=== PATIENT | female | born 1990 | race Caucasian/White ===

== ENCOUNTER 2020-06-04 11:52 | Emergency (ER) | payer OTHER, SELFPAY ==
[2020-06-04 12:20] VITALS: BP 119/69; PULSE 81; RESP 14; TEMP 36.3; O2SAT 100; BMI 25.0
--- NOTE | 2020-06-04 12:29 | HMH.EDUTC ---
[facility] [place] Impression: Exposure to COVID-19 virus Disposition: Home, Self-Care Condition on Discharge: Good Instructions: Preventing the Spread of Coronavirus Discharge Instructions Additional Instructions: Drink plenty of fluids. Take tylenol for pain or fever. Return if you begin to have difficulty breathing. Follow up with your regular doctor. GO TO THE ER FOR ANY WORSENING SYMPTOMS Referrals: PCP,No [Primary Care Provider] - Time of Disposition: 12:33 Medical Decision Making - Medical Records Medical records reviewed: No: I reviewed the patient's medical records. - Alexei Inquiry Pt receiving controlled substance: No Vital Signs: 06/04/20 12:20 06/04/20 12:39 Temperature 97.4 F L 97.4 F L Temperature Source Oral Pulse Rate 81 Pulse Rate [Right Brachial] 81 Respiratory Rate 14 14 Blood Pressure 119/69 Blood Pressure [Right Arm] 119/69 Blood Pressure Mean [Right Arm] 85 Blood Pressure Source [Right Arm] Automatic Cuff Blood Pressure Position [Right Arm] Sitting 02 Sat by Pulse Oximetry 100 Oxygen Delivery Method Room Air Orders (Tests/Meds): ORDERS Category Date Time Status Covid-19 Nasal PCR Sendout P&C Routine Lab 06/04/20 12:[address] [facility] [place] - General Stated complaint: covid test Time Seen by Provider: 06/04/20 12:29 - History of Present Illness Provider Complaint: She states that she was exposed to covid-19. She denies any symptoms but she needs a covid test for her job. - Related Data Home Medications Medication Instructions Recorded Confirmed No Known Home Medications 12/15/18 12/15/18 Allergies Allergy/AdvReac Type Severity Reaction Status Date / Time No Known Allergies Allergy Verified 06/04/20 12:38 [facility] History - Hepatitis A Screen Attestation statement:: This patient has been screened for Hepatitis A risk factors. I have reviewed the patient's past medical history: Yes Medical History: Reports:: Urinary Tract Infection Denies:: Cancer, Diabetes Mellitus Type 1, Diabetes Mellitus Type 2, MRSA Other Medical History: Reports: Anemia Comment: Anemia Other Surgeries: Yes: No Previous Surgery, , Tubal Ligation Amputation: No Fractures: No Comment: Ectopic 2017 - Social History Smoking Status: Current every day smoker Tobacco Type: cigarettes # Packs/Day (cigarettes): 1 Alcohol Intake: current Alcohol Intake Frequency:: a few times a month Substance Use Type: denies use Occupational Status: employed Housing: house Household Members: family Family Hx:: Cancer, Stroke, Heart Attack, Hypertension, Diabetes ROS Obtained: Yes All systems reviewed & no additional complaints - Constitutional Constitutional: Reports system reviewed and no additional complaints, except as docu - Eyes Eyes: Reports system reviewed and no additional complaints, except as docu - ENT Ears, Nose, Mouth, and Throat: Reports system reviewed and no additional complaints, except as docu - Cardiovascular Cardiovascular: Reports system reviewed and no additional complaints, except as docu - Respiratory Respiratory: Reports system reviewed and no additional complaints, except as docu - Gastrointestinal Gastrointestingal: Reports: system reviewed and no additional complaints, except as docu Physical Exam - General General appearance: alert, in no apparent distress - Head Head exam: atraumatic, normocephalic, normal inspection - Eye Eye exam: Present: normal appearance, PERRL, EOMI - ENT ENT exam: Present: normal exam, normal oropharynx, mucous membranes moist, TM's normal bilaterally, normal external ear exam - Neck Neck exam: Present: normal inspection, full ROM, trachea midline. Absent: meningismus, lymphadenopathy - Chest Chest inspection: Present: normal inspection, symmetric chest wall rise. Absent: tenderness - Respiratory Respiratory exam: Present: normal lung sounds bilaterally
[2020-06-04 12:39] VITALS: BP 119/69; PULSE 81; RESP 14; TEMP 36.3; O2SAT 100
[2020-06-05 11:44] LABS: Covid-19 Nasal PCR Sendout P&C Negative
== END 2020-06-04 12:43 | disposition home or self-care (01) ==
PROVIDERS: Emergency Provider Nurse Practitioner Family
DX: Z20.822 Contact with and (suspected) exposure to COVID-19 (principal); F17.210 Nicotine dependence, cigarettes, uncomplicated
CPT/HCPCS: 99202; G0463; U0004

== ENCOUNTER 2020-07-31 09:47 | Emergency (ER) | payer OTHER, SELFPAY ==
[2020-07-31 10:11] VITALS: BP 118/74; PULSE 79; RESP 14; TEMP 36.9; O2SAT 96; BMI 26.4
--- NOTE | 2020-07-31 10:25 | HMH.EDUTC ---
[facility] [place] Clinical Impression: Sinusitis Qualifiers: Sinusitis location: unspecified location Chronicity: unspecified Qualified Code(s): J32.9 - Chronic sinusitis, unspecified Disposition: Home, Self-Care Condition on Discharge: Good Instructions: Sinusitis, DI for Sinusitis, Azithromycin, Methylprednisolone, Benzonatate Additional Instructions: ? Start antibiotic today. Be sure to complete entire prescription even if feeling better ? Monitor temp. Tylenol every 4 hours as needed and / or ibuprofen every 6 hours as needed ( As long as your primary care physician has told you that it ok to take both. For fever/aches/pains ER if no less than 101 despite Tylenol or Motrin ? Humidifier/vaporizer or hot steamy shower ? Mucinex during the day for your cough and cough suppressant only at night. Be sure to drink lots of water. Insurance may not cover a prescriptions for mucinex. Might be cheaper to get 400mg tablets and take 2 tablet in the morning, mid-day and evening with lots of water. *Tessalon Perles will not cause drowsiness but use at bedtime to help stop cough so that you may get some rest. *Start steroid today. Helps with inflammation therefore, cough and wheezing. Follow directions on the package. Reviewed side effects. Patient reports taking them before. Follow up IMMEDIATELY for new or worsening of symptoms OR no noticeable improvement over the next 48-72 hours. 911 immediately for any life threatening symptoms such as chest pain or difficulty breathing You were tested for today for COVID19 your test result should be back in the next 24-48 hours, you may call to the [facility] to see if your test results are back in the next 48 hours [phone] [facility] hours are 9am-9pm You was given a handout with instructions for Self Quarantine and Self isolation for while you wait on test results and what to do if they are positive If you are positive the Health Dept will be contacting you also Prescriptions: methylPREDNISolone [Medrol 4mg tab] 4 mg PO DIRECTED #21 tab Transmission Status: Pending to [facility] Benzonatate [Tessalon Perle 100mg Cap*] 100 mg PO TID PRN #30 cap PRN Reason: Cough Transmission Status: Pending to [facility] Azithromycin [Z-Stevan 250mg Tab] 250 mg PO DIRECTED #6 tab Transmission Status: Pending to [facility] Referrals: PCP,No [Primary Care Provider] - As needed Forms: Work/School Release Time of Disposition: 10:37 Medical Decision Making - Alexei Inquiry Pt receiving controlled substance: No Alexei was queried for this patient: No Vital Signs: 07/31/20 10:11 Temperature 98.4 F Temperature Source Oral Pulse Rate [Right] 79 Respiratory Rate 14 Blood Pressure [Right Arm] 118/74 Blood Pressure Mean [Right Arm] 88 Blood Pressure Source [Right Arm] Automatic Cuff Blood Pressure Position [Right Arm] Sitting 02 Sat by Pulse Oximetry 96 Oxygen Delivery Method Room Air Orders (Tests/Meds): ORDERS Category Date Time Status Covid-19 Nasal PCR ([facility]) Routine Lab 07/31/20 10:19 Ordered [facility] UTC HPI - General Stated complaint: cough,runny nose Time Seen by Provider: 07/31/20 10:28 Mode of Arrival: Ambulatory Source of Information: Patient Limitations: No Limitations Description of Symptoms (Recalled from Triage Doc. by RN): coughing, runny nose, and FUNEZ x4 days. HEENT Symptoms (Recalled from RN notes): Yes (nasal drainage and FUNEZ) Resp Symptoms (Recalled from RN notes): Yes (dry cough) Skin Symptoms (Recalled from RN notes): No MS Symptoms (Recalled from RN notes): No Functional Status (Recalled from RN notes): na - History of Present Illness Provider Complaint: Patient state that she is an everyday smoker and has been having sinus pain and pressure along with cough and headache for about a week and it has got worse over the last 3-4 days States that this morning she woke up coughing alot so she came in - Related Data Previous Rx's Medicati
[2020-07-31 10:44] VITALS: BP 115/71; PULSE 83; RESP 17; TEMP 36.6
== END 2020-07-31 10:47 | disposition home or self-care (01) ==
PROVIDERS: Emergency Provider Nurse Practitioner
DX: Z20.822 Contact with and (suspected) exposure to COVID-19 (principal); J32.9 Chronic sinusitis, unspecified; F17.210 Nicotine dependence, cigarettes, uncomplicated
CPT/HCPCS: 99202; G0463; U0003

== ENCOUNTER 2021-07-29 17:23 | Emergency (ER) | payer OTHER, SELFPAY ==
[2021-07-29 18:16] VITALS: BP 106/66; PULSE 83; RESP 18; TEMP 37.2; O2SAT 98; BMI 28.3
--- NOTE | 2021-07-29 18:42 | HMH.EDUTC ---
[facility] [place] Clinical Impression: Nausea & vomiting Qualifiers: Vomiting type: unspecified Qualified Code(s): R11.2 - Nausea with vomiting, unspecified Disposition: Home, Self-Care Condition on Discharge: Good Instructions: Nausea and Vomiting-Adult Additional Instructions: Drink extra fluids with and between meals. If you have difficulty drinking, try very small amounts of water or suck on ice chips. ? Avoid fruit juices, as these do not replace minerals and can actually increase diarrhea. ? Children and adults can use sports drinks to replenish electrolytes. Younger children and infants should use products formulated for children, like oral rehydration solutions. ? Eat food in small amounts and let your stomach recover. ? Get lots of rest. You may feel tired or weak. ? No greasy or fried foods for the next 24-48 hours BRAT diet Bananas Rice Apples and Sabula ? Make sure to drink plenty of liquids ? Return if needed ? Straight to ER if any life threatening symptoms ? Zofran as prescribed ?? Follow up with family doctor in the next 48-72 hours if no improvement or any worsening of symptoms Prescriptions: Ondansetron [Zofran 4mg ODT] 4 mg PO TIDP PRN #12 tab PRN Reason: Vomiting Transmission Status: Pending to [facility] Referrals: Provider,Referral, MD [Primary Care Provider] - As needed Forms: Work/School Release Time of Disposition: 18:46 Medical Decision Making - Alexei Inquiry Pt receiving controlled substance: No Alexei was queried for this patient: No Vital Signs: 07/29/21 18:16 Temperature 99 F Temperature Source Oral Pulse Rate [Left] 83 Respiratory Rate 18 Blood Pressure [Right Arm] 106/66 L Blood Pressure Mean [Right Arm] 79 02 Sat by Pulse Oximetry 98 [facility] [place] HPI - General Stated complaint: ABD PAIN,funez Time Seen by Provider: 07/29/21 18:42 Mode of Arrival: Ambulatory Source of Information: Patient Limitations: No Limitations Description of Symptoms (Recalled from Triage Doc. by RN): pt c/o an upset stomach and FUNEZ since this am. HEENT Symptoms (Recalled from RN notes): Yes Resp Symptoms (Recalled from RN notes): No Skin Symptoms (Recalled from RN notes): No MS Symptoms (Recalled from RN notes): No Functional Status (Recalled from RN notes): wnl - History of Present Illness Provider Complaint: Patient states that several of her kids has had the stomach virus State that she has been having N/V all day today States that she has been able to keep down liquids but this evening she was still having N/V so she came in to get something to help with the vomiting - Related Data Previous Rx's Medication Instructions Recorded Azithromycin [Z-Stevna 250mg Tab] 250 mg PO DIRECTED #6 tab 07/31/20 Benzonatate [Tessalon Perle 100mg 100 mg PO TID PRN #30 cap 07/31/20 Cap*] methylPREDNISolone [Medrol 4mg 4 mg PO DIRECTED #21 tab 07/31/20 tab] Ondansetron [Zofran 4mg ODT] 4 mg PO TIDP PRN #12 tab 07/29/21 Allergies Allergy/AdvReac Type Severity Reaction Status Date / Time No Known Allergies Allergy Verified 07/31/20 10:01 - Worker's Comp Is this a Worker's Comp case?: No [facility] History - Hepatitis A Screen Drug use history?: No High risk sexual behaviors?: No History of sexually transmitted infection?: No Currently employed?: No Childcare worker?: No Do you have indoor plumbing?: Yes Do you have electricity?: Yes Attestation statement:: This patient has been screened for Hepatitis A risk factors. I have reviewed the patient's past medical history: Yes Medical History: Reports:: Urinary Tract Infection Denies:: Cancer, Diabetes Mellitus Type 1, Diabetes Mellitus Type 2, MRSA Other Medical History: Reports: Anemia Comment: Anemia Other Surgeries: Yes: No Previous Surgery, , Tubal Ligation Amputation: No Fractures: No Comment: Ectopic 2017 - Social History Smoking Status: Current every day smoker Tobacco Type: cigarettes #
[2021-07-29 19:11] VITALS: BP 106/66; PULSE 83; RESP 98; TEMP 37.2
== END 2021-07-29 19:12 | disposition home or self-care (01) ==
PROVIDERS: Emergency Provider Nurse Practitioner
DX: R11.2 Nausea with vomiting, unspecified (principal); F17.210 Nicotine dependence, cigarettes, uncomplicated
CPT/HCPCS: 99212; G0463

== ENCOUNTER 2023-07-29 13:56 | Emergency (ER) | payer OTHER, SELFPAY ==
[2023-07-29 14:15] VITALS: BP 124/79; PULSE 80; RESP 19; TEMP 36.8; O2SAT 98; BMI 31.6
--- NOTE | 2023-07-29 14:28 | EXP.UTC ---
Discharge Plan Disposition Patient Disposition: Home, Self-Care Condition: Good Prescriptions Prescriptions: New pseudoephedrine HCl [Sudafed 12 Hour] 120 mg tablet extended release 120 mg PO Q12H PRN (Reason: nasal congestion) Qty: 20 0RF fluticasone propionate [Flonase Allergy Relief] 50 mcg/actuation spray,suspension 2 spray intranasal DAILY Qty: 16 0RF Rx Instructions: administer into each nostril daily No Action ondansetron 4 MG tablet,disintegrating 4 mg PO TIDP PRN (Reason: Vomiting) Qty: 12 0RF phenazopyridine [Pyridium] 200 mg tablet 200 mg PO Q8H 2 Days Qty: 6 0RF ciprofloxacin HCl [Cipro] 500 mg tablet 500 mg PO BID 7 Days Qty: 14 0RF azithromycin 250 MG tablet 250 mg PO DIRECTED Qty: 6 0RF Rx Instructions: Take two (2) tablets on day #1, then one (1) tablet day #2 thru #5 methylprednisolone 4 MG tablet 4 mg PO DIRECTED Qty: 21 0RF Rx Instructions: Take as directed on package instructions benzonatate 100 MG capsule 100 mg PO TID PRN (Reason: Cough) Qty: 30 0RF Referrals Follow up/Referrals: Darryn Lopez MD [Primary Care Provider] - See instructions Yvan Pham [Referring] - See instructions (call office for appointment) Activity Restrictions/Add. Instructions Additional Instructions/Restrictions: Take sudafed as prescribed, it can be purchased over the counter at the pharmacy you have to go to the counter and ask for it Pataday eye drops may help with itchy eyes Follow up with your Family Doctor Follow up with [facility] for further evaluation and treatment of allergy symptoms Clinical Impressions Clinical Impression: Allergic rhinitis Instructions Patient Instructions: Allergic Rhinitis, DI for Allergic Rhinitis Discharge ED Provider: Kathryn Lozano [facility] [place] HPI General Stated complaint: congestion, sinus pressure, throat and ears itch Mode of Arrival: Ambulatory Source of Information: Patient Limitations: No Limitations Time Seen by Provider: 07/29/23 14:28 Description of Symptoms (Recalled from Triage Doc. by RN): PATIENT C/O CONGESTION, RUNNY NOSE, ITCHY EYS AND THROAT, AND SNEEZING ON AND OFF FOR 2 MONTHS HEENT Symptoms (Recalled from RN notes): Yes Resp Symptoms (Recalled from RN notes): No Skin Symptoms (Recalled from RN notes): No MS Symptoms (Recalled from RN notes): No Functional Status (Recalled from RN notes): WNL History of Present Illness Provider Complaint: Patient states that for the last couple of months she has been battling with allergies States that she has been having nasal congestion, sneezing, runny nose, itchy watery eyes and itchy throat States that she has been taking her allergy medications but it hasnt helped much Related Data Previous Rx's Medication Instructions Recorded azithromycin 250 mg tablet 250 mg PO DIRECTED #6 tabs 07/31/20 benzonatate 100 mg capsule 100 mg PO TID PRN Cough #30 caps 07/31/20 methylprednisolone 4 mg tablet 4 mg PO DIRECTED #21 tabs 07/31/20 ondansetron 4 mg disintegrating 4 mg PO TIDP PRN Vomiting #12 tabs 07/29/21 tablet ciprofloxacin HCl 500 mg tablet 500 mg PO BID 7 days #14 tabs 07/08/23 (Cipro) phenazopyridine 200 mg tablet 200 mg PO Q8H 2 days #6 tabs 07/08/23 (Pyridium) fluticasone propionate 50 2 spray intranasal DAILY #16 grams 07/29/23 mcg/actuation nasal spray,suspension (Flonase Allergy Relief) pseudoephedrine HCl 120 mg 120 mg PO Q12H PRN nasal 07/29/23 tablet,extended release (Sudafed congestion #20 tabs 12 Hour) Allergies Allergy/AdvReac Type Severity Reaction Status Date / Time No Known Allergies Allergy Verified 07/31/20 10:01 Worker's Comp Is this a Worker's Comp case?: No [facility] Disclaimer: The information contained in this section may have been updated after the patient was seen, as this information can be updated by other users. Social History Smoking Status: Current every day smoker tobacco type: cigarettes packs per day: 1 alcohol intake: never substance use type: denies use current occupational status: employed Travel in the last 8 weeks: None household members: family housing: house ROS Obtained: Yes All systems reviewed & no additional complaints except as documented and Yes Systems reviewed as appropriate & no additional complaints except as documented Constitutional Constitutional: Reports system reviewed and no additional complaints, except as documented and Reports as per HPI Eyes Eyes: Reports system reviewed and no additional complaints, except as documented, Reports as per HPI and Reports itchy eyes ENT Ears, Nose, Mouth, and Throat: Reports system reviewed and no additional complaints, except as documented, Reports as per HPI, Reports nasal congestion, Reports nasal discharge and Reports sore throat Cardiovascular Cardiovascular: Reports system reviewed and no additional complaints, except as documented and Reports as per HPI Respiratory Respiratory: Reports system reviewed and no additional complaints, except as documented and Reports as per HPI Gastrointestinal Gastrointestingal: Reports system reviewed and no additional complaints, except as documented and as per HPI Allergic/Immunologic Allergic/Immunologic: Reports itchy eyes Physical Exam General General appearance: alert and in no apparent distress Expanded ENT Exam Nose exam: Absent sinus tenderness Throat exam: Present normal inspection Respiratory Respiratory exam: Present normal lung sounds bilaterally; Absent respiratory distress or wheezes Cardiovascular Cardiovascular exam: Present regular rate, normal rhythm and normal heart sounds Neurological Exam Neurological exam: Present alert, oriented X3 and normal gait Medical Decision Making Alexei Inquiry Pt receiving controlled substance: No Alexei was queried for this patient: No Vital Signs: 07/29/23 14:15 Temperature 98.3 F Temperature Source Oral Pulse Rate [Left Brachial] 80 Respiratory Rate 19 Blood Pressure [Left Arm] 124/79 Blood Pressure Mean [Left Arm] 94 Blood Pressure Source [Left Arm] Automatic Cuff Blood Pressure Position [Left Arm] Sitting 02 Sat by Pulse Oximetry 98 Oxygen Delivery Method Room Air
[2023-07-29 14:38] VITALS: BP 124/79; PULSE 80; RESP 19; TEMP 36.8; O2SAT 98
== END 2023-07-29 14:43 | disposition home or self-care (01) ==
PROVIDERS: Emergency Provider Nurse Practitioner; PCP Internal Medicine Adolescent Medicine
DX: J30.9 Allergic rhinitis, unspecified (principal); R09.81 Nasal congestion; R07.0 Pain in throat; F17.210 Nicotine dependence, cigarettes, uncomplicated
CPT/HCPCS: 99212; 99214; G0463

== ENCOUNTER 2023-07-30 18:55 | Outpatient (CLI) | payer OTHER, SELFPAY ==
[2023-07-30 18:19] LABS: Basophils # 0.1 K/mm3 (0-0.2); Eosinophils # 0.1 K/mm3 (0.0-0.4); Eosinophils % 1.7 % (0.1-12.0); Hematocrit 36.8 % (37.0-47.0); Hemoglobin 11.7 g/dL (12.2-16.2); Lymphocytes # 2.6 K/mm3 (0.7-4.5); Lymphocytes % 34.6 % (10-50); Mean Corpuscular HGB Conc 31.8 g/dL (31.8-35.4); Mean Corpuscular Hemoglobin 26.6 pg (27.0-31.2); Mean Corpuscular Volume 83.6 fl (81-99); Mean Platelet Volume 8.2 fl (7.4-10.4); Monocytes # 0.3 K/mm3 (0.1-1.0); Monocytes % 4.2 % (1.7-9.3); Neutrophils # 4.3 K/mm3 (1.8-7.8); Neutrophils % 58.5 % (37.0-80.0); Platelet Count 281 K/mm3 (142-424); Red Cell Distribution Width 13.4 % (11.5-17.5); White Blood Count 7.4 K/mm3 (4.8-10.8)
[2023-07-30 18:41] LABS: Chloride 108 mmol/L (98-107); Potassium 3.8 mmoL/L (3.5-5.1); Sodium 136 mmol/L (136-145)
[2023-07-30 18:43] LABS: Alanine Aminotransferase 15 U/L (12-78); Alkaline Phosphatase 75 U/L (38-126); Aspartate Amino Transferase 26 U/L (14-36); Bilirubin,Total 0.2 mg/dl (0.2-1.3); Blood Urea Nitrogen 10 mg/dl (7-17); Estimated Glomerular Filt Rate 114 ml/min (>60); GFR (African American) 138 ML/MIN (>60)
[2023-07-30 18:44] LABS: Albumin Level 4.2 g/dl (3.5-5.0); Albumin/Globulin Ratio 1.4 (1.1-1.8); Anion Gap 8.8 mEq/L (5-15); Calcium 8.9 mg/dl (8.4-10.2); Carbon Dioxide 23 mmol/L (22.0-30.0); Chol/HDL Ratio 2.8 (1-3.5); Cholesterol 180 mg/dl (140-200); Glucose 89 mg/dl (74-100); HDL Cholesterol 64 mg/dl (40-60); Total Protein,Serum 7.2 g/dl (6.3-8.2); Triglycerides 52 mg/dl (30-150); VLDL Cholesterol 10 mg/dL (0-40)
[2023-07-30 18:55] LABS: Direct LDL Cholesterol 82.98 mg/dL (100-129)
[2023-07-30 19:13] LABS: Thyroid Stimulating Hormone 2.14 uIU/mL (0.465-4.68)
[2023-07-30 19:14] LABS: Hemoglobin A1C 4.9 % (4.0-6.0)
== END 2023-07-30 23:59 ==
LOC: LAB.DROPOF 18:56
PROVIDERS: PCP Family Medicine; Visit Provider Family Medicine
DX: J30.9 Allergic rhinitis, unspecified (principal); D64.9 Anemia, unspecified; E66.9 Obesity, unspecified; Z82.49 Family history of ischemic heart disease and other diseases of the circulatory system; Z68.31 Body mass index [BMI] 31.0-31.9, adult; Z79.899 Other long term (current) drug therapy; F17.210 Nicotine dependence, cigarettes, uncomplicated
CPT/HCPCS: 80053; 80061; 83036; 84443; 85025

== ENCOUNTER 2024-03-24 13:04 | Emergency (ER) | payer OTHER, SELFPAY ==
[2024-03-24 14:05] VITALS: BP 147/97; PULSE 73; RESP 20; TEMP 36.7; O2SAT 97; BMI 27.8
--- NOTE | 2024-03-24 14:15 | ED_ITS ---
Discharge Plan Disposition Patient Disposition: Home, Self-Care Condition: Good Referrals Follow up/Referrals: Melody Adams APRN [Primary Care Provider] - See instructions Activity Restrictions/Add. Instructions Additional Instructions/Restrictions: Make sure you're drinking plenty of fluids. Take tylenol or ibuprofen for pain or fever. Follow up with your regular doctor. GO TO THE ER FOR ANY WORSENING SYMPTOMS We will culture your urine. That will tell for sure if this is an infection or not. This test takes 3 days to complete. Clinical Impressions Clinical Impression: Low back pain Instructions Patient Instructions: Low Back Pain, DI for Low Back Pain Print Language Print Language: Azeri Discharge ED Provider: Sebastián Kapoor [facility] [place] HPI General Stated complaint: burning when urinating Time Seen by Provider: 03/24/24 14:15 Related Data Allergies Allergy/AdvReac Type Severity Reaction Status Date / Time No Known Allergies Allergy Verified 12/31/23 13:05 [facility] Disclaimer: The information contained in this section may have been updated after the patient was seen, as this information can be updated by other users. Medical History Tubal Gallstones Exposure to COVID-19 virus Sinusitis Nausea & vomiting Anemia Surgical History History of tubal ligation History of Family History Brother Alcoholism Substance abuse Family/Other Cancer Grandmother No problems noted. Mother Diabetes Heart attack Hypertension Father Hyperlipidemia Hypertension Grandfather Substance abuse Social History Smoking Status: Current every day smoker tobacco type: cigarettes packs per day: 1 alcohol intake: never substance use type: denies use current occupational status: employed Travel in the last 8 weeks: None household members: family housing: house ROS Obtained: Yes All systems reviewed & no additional complaints except as documented Constitutional Constitutional: Denies chills and Denies fever(s) Eyes Eyes: Denies eye discharge ENT Ears, Nose, Mouth, and Throat: Denies dizziness, Denies otalgia, Denies neck pain and Denies sore throat Cardiovascular Cardiovascular: Denies chest pain Respiratory Respiratory: Denies shortness of breath, Denies chest congestion, Denies cough, Denies stridor and Denies wheezing Gastrointestinal Gastrointestingal: Denies nausea or vomiting Musculoskeletal Musculoskeletal: Reports back pain and Denies neck pain Integumentary/Breasts Skin/Breast: Denies rash Neurologic Neurologic: Denies dizziness, Denies paresthesias and Reports radicular pain Allergic/Immunologic Allergic/Immunologic: Denies wheezing Physical Exam General General appearance: alert and in no apparent distress Head Head exam: atraumatic, normocephalic and normal inspection Eye Eye exam: Present normal appearance, PERRL and EOMI ENT ENT exam: Present normal exam, normal oropharynx, mucous membranes moist, TM's normal bilaterally and normal external ear exam Neck Neck exam: Present normal inspection, full ROM and trachea midline; Absent meningismus or lymphadenopathy Chest Chest inspection: Present normal inspection and symmetric chest wall rise; Absent tenderness Respiratory Respiratory exam: Present normal lung sounds bilaterally; Absent respiratory distress Cardiovascular Cardiovascular exam: Present regular rate and normal rhythm; Absent JVD Abdominal Exam Abdominal exam: Present soft and normal bowel sounds; Absent distention, tenderness or guarding Extremities Exam Extremities exam: Present normal inspection, full ROM and normal capillary refill; Absent calf tenderness Back Exam Back exam: Present normal inspection; Absent tenderness Neurological Exam Neurological exam: Present alert, oriented X3, CN II-XII intact, normal gait and reflexes normal; Absent motor sensory deficit Psychiatric Psychiatric exam: Present normal affect and normal mood Skin Skin exam: Present warm, dry, intact and normal color Lymphatic Lymphatic Findings: no adenopathy Medical Decision Making Medical Records Medical records reviewed: No I reviewed the patient's medical records. Screening: Per USPSTF and CDC recommendations, given the prevalence of disease in our region, it is our hospital?s policy to screen for HIV and viral Hepatitis for all patients aged 18 and over and those with ongoing risk factors. Alexei Inquiry Pt receiving controlled substance: No Lab Data Lab results reviewed: Yes I reviewed the patient's lab results. Orders (Tests/Meds): ORDERS Category Date Time Status Urine Culture Stat Micro 03/24/24 14:04 Received
[2024-03-24 14:35] VITALS: BP 147/97; PULSE 73; RESP 20; TEMP 36.7; O2SAT 97
[2024-03-24 14:36] LABS: Apearance,Urine Clear (Clear); Bilirubin,Urine Negative (Negative); Blood, Urine Negative (Negative); Color,Urine Yellow (Yellow); Glucose,Urine (UA) Negative (Negative); Ketones,Urine >=160 (Negative); PH,Urine 5.5 (5.0-8.5); Protein,Urine Negative (Negative); UTC Leukocyte Esterase,Urine Negative (Negative); UTC Nitrate,Urine Negative (Negative); Urobilinogen,Urine 0.2 EU/dl (0.2)
== END 2024-03-24 14:39 | disposition home or self-care (01) ==
PROVIDERS: Emergency Provider Nurse Practitioner Family; PCP Family Medicine
DX: R30.0 Dysuria (principal); M54.59 Other low back pain
CPT/HCPCS: 99212; G0381; 81003; 87086

== ENCOUNTER 2024-07-22 06:24 | Observation (INO) | payer OTHER, SELFPAY ==
[2024-07-22] VITALS (28 sets, daily range): BP systolic 90–153; BP diastolic 40–115; PULSE 57–89; RESP 16–20; TEMP 36.3–36.8; O2SAT 96–100; BMI 24.4; BMI 25.2
--- NOTE | 2024-07-22 06:38 | CT_ITS ---
PROCEDURE INFORMATION: Exam: CT Abdomen And Pelvis With Contrast Exam date and time: 07/22/2024 7:42 AM Age: 34 years old Clinical indication: Abdominal pain; Localized; Right; Prior surgery; Surgery date: 6+ months; Surgery type: Tubal & ; Additional info: Upper right abd pain TECHNIQUE: Imaging protocol: Computed tomography of the abdomen and pelvis with contrast. Radiation optimization: All CT scans at this facility use at least one of these dose optimization techniques: automated exposure control; mA and/or kV adjustment per patient size (includes targeted exams where dose is matched to clinical indication); or iterative reconstruction. Contrast material: ISOVUE; Contrast volume: 75 ml; Contrast route: IV; COMPARISON: [id number] CT abdomen pelvis wo con 04/20/2018 12:27 AM FINDINGS: Liver: Normal. No mass. Gallbladder and biliary ducts: Gallstones in the gallbladder recommend gallbladder ultrasound if clinically indicated. Pancreas: Normal. No ductal dilation. Spleen: Normal. No splenomegaly. Adrenal glands: Normal. No mass. Kidneys and ureters: Multiple simple cysts in both kidneys. They were present on the prior study. Stomach and bowel: Unremarkable. No obstruction. No mucosal thickening. Appendix: The appendix demonstrates diffuse distention and periappendiceal inflammatory changes consistent with acute appendicitis. It contains 10 mm appendicolith. Appendix is 15 mm in width (coronal series image 20- 23). Intraperitoneal space: Minimal free fluid in the pelvis No free air. Vasculature: Unremarkable. No abdominal aortic aneurysm. Lymph nodes: Unremarkable. No enlarged lymph nodes. Urinary bladder: Unremarkable as visualized. Reproductive: Unremarkable as visualized. Bones/joints: Unremarkable. No acute fracture. Soft tissues: Unremarkable. IMPRESSION: 1. The appendix demonstrates diffuse distention and periappendiceal inflammatory changes consistent with acute appendicitis. It contains 10 mm appendicolith. Appendix is 15 mm in width (coronal series image 20- 23). 2. Gallstones in the gallbladder recommend gallbladder ultrasound if clinically indicated. COMMENTS: Consistent with the [employer]'s Incidental Findings Committee white paper (J Am Sher Radiol 2018): Any incidental renal lesion less than 1 cm or classified as too small to characterize, or any incidental cystic renal lesion characterized as simple-appearing, is likely benign. No follow-up imaging is recommended for these lesions per consensus recommendations based on imaging criteria.
--- NOTE | 2024-07-22 06:39 | HMH.EDGENADL ---
Discharge Plan Disposition Patient Disposition: Xfer Other Condition: Fair Clinical Impressions Clinical Impression: Acute appendicitis, Gallstones, Anemia Discharge ED Provider: Rosalba Brewer General Adult HPI <Kd Chavira MD - Last Filed: 07/22/24 07:27> General Chief complaint: Abdominal Pain Stated complaint: abd pain Time Seen by Provider: 07/22/24 06:32 History of Present Illness HPI narrative: 34-year-old female with history of tubal ligation and anemia presents for upper abdominal pain. Happened shortly prior to arrival. Sharp and burning. Present on both sides of the upper abdomen, worse on the right. Reports chronic constipation but did have bowel movement earlier today. Denies any urinary symptoms. Reports she is on her menstrual period currently. Denies any recent fever or illness Related Data Home Medications ?Medication ?Instructions ?Recorded ?Confirmed No Known Home Medications 07/22/24 07/22/24 Allergies Allergy/AdvReac Type Severity Reaction Status Date / Time No Known Allergies Allergy Verified 12/31/23 13:05 PFSH <Kd Chavira MD - Last Filed: 07/22/24 07:27> [facility] Disclaimer: The information contained in this section may have been updated after the patient was seen, as this information can be updated by other users. Medical History Tubal Gallstones Exposure to COVID-19 virus Sinusitis Nausea & vomiting Anemia Surgical History History of tubal ligation History of Family History Brother Alcoholism Substance abuse Family/Other Cancer Grandmother No problems noted. Mother Diabetes Heart attack Hypertension Father Hyperlipidemia Hypertension Grandfather Substance abuse Social History (Updated 07/22/24 @ 13:00 by Kathryn Lemos RN) Smoking Status: Current every day smoker tobacco type: cigarettes packs per day: 1 alcohol intake: never substance use type: denies use current occupational status: employed Travel in the last 8 weeks: None household members: family housing: house Exposure to someone with infectious disease in past 14 days?: No Do you have a fever (greater than 100.4 F or 38 C)?: No Have you tested positive for COVID-19: No Exposed to someone with COVID-19 in past 14 days?: No Do you have a sore throat?: No Do you have a cough?: No Do you have any weakness?: No Are you experiencing any nausea/vomitting?: No Do you have any diarrhea?: No Are you experiencing any unusual bleeding?: No Do you have any muscle aches/pain?: No Do you have any abdominal pain?: Yes Are you experiencing loss of taste or smell?: No Other Medical History Have you received the Flu Vaccine for this season: No Have you received the Pneumonia Vaccine: No <Kd Chavira MD - Last Filed: 07/22/24 07:27> ROS Obtained: Yes All systems reviewed & no additional complaints except as documented Physical Exam <Kd Chavira MD - Last Filed: 07/22/24 07:27> General General appearance: alert and in no apparent distress Head Head exam: atraumatic and normocephalic Eye Eye exam: Present normal appearance, PERRL and EOMI ENT ENT exam: Present normal oropharynx and normal external ear exam Neck Neck exam: Present normal inspection and full ROM Chest Chest inspection: Present normal inspection and symmetric chest wall rise; Absent tenderness Respiratory Respiratory exam: Present normal lung sounds bilaterally; Absent respiratory distress Cardiovascular Cardiovascular exam: Present regular rate and normal rhythm Abdominal Exam Abdominal exam: Present soft and tenderness (Right upper quadrant, epigastric, left upper quadrant); Absent distention or guarding Extremities Exam Extremities exam: Present normal inspection; Absent edema or joint swelling Back Exam Back exam: Present normal inspection; Absent tenderness Neurological Exam Neurological exam: Present alert and oriented X3; Absent motor sensory deficit Psychiatric Psychiatric exam: Present normal affect and normal mood Skin Skin exam: Present warm, dry and normal color Lymphatic Lymphatic Findings: no adenopathy Medical Decision Making <Kd Chavira MD - Last Filed: 07/22/24 07:27> Medical Records Medical records reviewed: Yes I reviewed the patient's medical records. Screening: Per USPSTF and CDC recommendations, given the prevalence of disease in our region, it is our hospital?s policy to screen for HIV and viral Hepatitis for all patients aged 18 and over and those with ongoing risk factors. Alexei Inquiry Pt receiving controlled substance: No Alexei was queried for this patient: No Vital Signs: 07/22/24 06:40 07/22/24 07:25 07/22/24 07:31 Temperature 98.1 F Temperature Source Oral Pulse Rate 89 72 Pulse Rate [Radial] 88 Respiratory Rate 20 Blood Pressure 111/87 124/77 Blood Pressure [Right Arm] 153/115 H Blood Pressure Mean [Right Arm] 127 Blood Pressure Position [Right Arm] Sitting 02 Sat by Pulse Oximetry 98 99 100 Oxygen Delivery Method Room Air Room Air Room Air 07/22/24 08:00 07/22/24 08:31 07/22/24 09:00 Temperature Temperature Source Pulse Rate 67 68 65 Pulse Rate [Radial] Respiratory Rate Blood Pressure 106/71 L 110/70 118/72 Blood Pressure [Right Arm] Blood Pressure Mean [Right Arm] Blood Pressure Position [Right Arm] 02 Sat by Pulse Oximetry 100 97 98 Oxygen Delivery Method Room Air Room Air Room Air 07/22/24 09:30 07/22/24 10:00 07/22/24 11:10 Temperature 98.1 F Temperature Source Pulse Rate 70 61 61 Pulse Rate [Radial] Respiratory Rate 16 Blood Pressure 107/67 L 105/54 L 105/54 L Blood Pressure [Right Arm] Blood Pressure Mean [Right Arm] Blood Pressure Position [Right Arm] 02 Sat by Pulse Oximetry 98 97 Oxygen Delivery Method Room Air Room Air Lab Data Lab results reviewed: Yes I reviewed the patient's lab results. Lab Results 07/22/24 06:38: Urine Color Yellow, Urine Appearance Slightly cloudy, Urine pH 6.0, Ur Specific [place] 1.025, Urine Protein 30, Urine Glucose (UA) Negative, Urine Ketones Large, Urine Blood 3+ A, Urine Nitrate Negative, Urine Bilirubin Negative, Urine Urobilinogen 0.2, Ur Leukocyte Esterase Negative, Urine RBC 10-20, Urine WBC None, Ur Squamous Epith Cells Occasional, Urine Bacteria Trace 07/22/24 06:48: WBC 8.2, RBC 4.65, Hgb 11.5 L, Hct 35.8 L, MCV 77.0 L, MCH 24.7 L, MCHC 32.1, RDW 17.2, Plt Count 286, MPV 10.3, Neut % (Auto) 70.3, Lymph % (Auto) 21.5, [place] % (Auto) 4.9, Eos % (Auto) 2.0, Baso % (Auto) 0.9, Neut # (Auto) 5.7, Lymph # (Auto) 1.8, [place] # (Auto) 0.4, Eos # (Auto) 0.2, Baso # (Auto) 0.1, Sodium 137, Potassium 4.0, Chloride 110 H, Carbon Dioxide 16 L, Anion Gap 15.0, BUN 15, Creatinine 0.60, Estimated Creat Clear 138, Estimated GFR 114, Est GFR ( Amer) 138, Glucose 88, Calcium 9.3, Magnesium 2.0, Total Bilirubin 0.2, AST 25, ALT 17, Alkaline Phosphatase 56, Total Protein 7.7, Albumin 4.8, Globulin 2.9, Albumin/Globulin Ratio 1.7, Lipase 73, Serum HCG, Qual Negative 07/22/24 06:48 07/22/24 06:48 Orders (Tests/Meds): ED MEDICATIONS Generic Name Dose Route Start Last Admin Trade Name Freq PRN Reason Stop Dose Admin Hydromorphone HCl 0.5 mg 07/22/24 12:11 Hydromorphone 2mg/Ml Syringe IV 07/22/24 14:11 Q5MINP PRN Severe Pain (7-10) Lactated Ringer's 1,000 mls @ 100 mls/hr 07/22/24 12:15 Lactated Ringer's 1000 Ml Bag IV 07/22/24 20:00 .Q10H ANGIE Piperacillin Sod/Tazobactam 50 mls @ 100 mls/hr 07/22/24 17:00 Sod 3.375 gm/ Sodium Chloride IV 07/23/24 16:59 Q6H ANGIE Ketorolac Tromethamine 15 mg 07/22/24 12:11 07/22/24 13:09 Ketorolac 30mg/Ml Vial IV 07/27/24 12:10 15 mg Q6HP PRN Administration Mild to Moderate Pain (1-6) Meperidine HCl 25 mg 07/22/24 12:11 Meperidine 25mg/Ml 1ml Syringe IV 07/22/24 14:11 Q5MINP PRN Shivering Morphine Sulfate 2 mg 07/22/24 12:11 Morphine 2mg/Ml Syringe IV 08/21/24 12:10 Q2HP PRN Moderate to Severe Pain (4-10) Ondansetron HCl 4 mg 07/22/24 12:11 Ondansetron 4mg/2ml Vial IV 07/22/24 14:11 Q6HP PRN Nausea Ondansetron HCl 4 mg 07/22/24 12:11 Ondansetron 4mg/2ml Vial IV 08/21/24 12:10 Q6HP PRN Nausea Oxycodone/Acetaminophen 1 each 07/22/24 12:11 Oxycodone 5mg W/Apap 325mg Tablet PO 08/21/24 12:10 Q6HP PRN Moderate to Severe Pain (4-10) Promethazine HCl 6.25 mg 07/22/24 12:11 Promethazine Hcl 25mg/Ml 1ml Vial IV 07/22/24 14:11 [id number] PRN Nausea And Vomiting Sodium Chloride 10 ml 07/22/24 07:51 07/22/24 07:59 Sodium Chloride 0.9% 10ml Syr (Rad Only) IV 08/21/24 07:50 10 ml NEEDED PRN Administration Maintain IV Site Sodium Chloride 25 ml 07/22/24 12:11 Sodium Chloride 0.9% 25ml Bag IV 07/22/24 14:11 NEEDED PRN for Use with IV Promethazine Discontinued Medications Generic Name Dose Route Start Last Admin Trade Name Freq PRN Reason Stop Dose Admin Belladonna Alkaloids 60 ml 07/22/24 07:25 07/22/24 07:26 Belladonna Alkaloids 60 Ml Ml PO 07/22/24 07:26 60 ml ONCE ONE Administration Sodium Chloride 1,000 mls @ 999 mls/hr 07/22/24 06:45 07/22/24 06:52 Sod Chlor 0.9% 1000ml Bag IV 07/22/24 07:45 999 mls/hr .Q1H1M ANGIE Administration Piperacillin Sod/Tazobactam 50 mls @ 100 mls/hr 07/22/24 11:02 07/22/24 11:05 Sod 3.375 gm/ Sodium Chloride IV 07/22/24 11:31 100 mls/hr ONCE ONE Administration Lactated Ringer's 1,000 mls @ 999 mls/hr 07/22/24 11:04 07/22/24 11:05 Lactated Ringer's 1000 Ml Bag IV 07/22/24 12:04 999 mls/hr .Q1H1M ONE Administration Iopamidol 75 ml 07/22/24 07:51 07/22/24 07:59 Iopamidol-370 (76%);100ml Bottle IV 07/22/24 07:52 75 ml ONCE ONE Administration Ketorolac Tromethamine 30 mg 07/22/24 06:37 07/22/24 06:52 Ketorolac 30mg/Ml Vial IV 07/22/24 06:38 30 mg ONCE ONE Administration Morphine Sulfate 4 mg 07/22/24 06:37 07/22/24 07:00 Morphine 4mg/Ml Syringe IV 07/22/24 06:38 Not Given ONCE ONE Ondansetron HCl 4 mg 07/22/24 06:37 07/22/24 06:52 Ondansetron 4mg/2ml Vial IV 07/22/24 06:38 4 mg ONCE ONE Administration ORDERS Category Date Time Status CT abdomen pelvis w con Stat Cat Scan 07/22/24 06:38 Completed General Surgery Consult [Consult to General Surgery] [ Cons 07/22/24 10:09 Ordered CONS] Stat CBC w/Auto Diff [Complete Blood Count Auto Diff] Stat Lab 07/22/24 06:48 Completed CMP [Comprehensive Metabolic Panel] Stat Lab 07/22/24 06:48 Completed Complete Blood Count Auto Diff Routine Lab 07/23/24 06:00 Ordered HCG Qualitative, Serum Stat Lab 07/22/24 06:48 Completed Lipase Stat Lab 07/22/24 06:48 Completed Magnesium Stat Lab 07/22/24 06:48 Completed UA [Urinalysis and Microscopic] Stat Lab 07/22/24 06:38 Completed Urinalysis (cathed specimen) Routine Lab 07/22/24 11:26 Received Medical Decision Narrative: 34-year-old female with history of anemia presents for upper abdominal pain. History was obtained via interactive discussion with patient, family, chart. On arrival, patient is [afebrile, hemodynamically stable, satting appropriately, alert, oriented x4, GCS 15], moving all extremities spontaneously. Full physical exam performed and significant for upper abdominal tenderness Differential includes but is not limited to gastritis, gastroenteritis, cholecystitis, choledocholithiasis, constipation, bowel obstruction, UTI, kidney stone. Patient was given Toradol Zofran GI cocktail and 1 L fluid for symptomatic management and correction of underlying abnormalities. Workup initiated including CBC CMP mag lipase UA test CT abdomen pelvis IV contrast. Initial labs interpreted by me shows no significant leukocytosis, stable anemia. At this time care handed off to oncoming physician. <Rosalba Brewer, DO - Last Filed: 07/22/24 14:10> Vital Signs: 07/22/24 06:40 07/22/24 07:25 07/22/24 07:31 Temperature 98.1 F Temperature Source Oral Pulse Rate 89 72 Pulse Rate [Radial] 88 Respiratory Rate 20 Blood Pressure 111/87 124/77 Blood Pressure [Right Arm] 153/115 H Blood Pressure Mean [Right Arm] 127 Blood Pressure Position [Right Arm] Sitting 02 Sat by Pulse Oximetry 98 99 100 Oxygen Delivery Method Room Air Room Air Room Air 07/22/24 08:00 07/22/24 08:31 07/22/24 09:00 Temperature Temperature Source Pulse Rate 67 68 65 Pulse Rate [Radial] Respiratory Rate Blood Pressure 106/71 L 110/70 118/72 Blood Pressure [Right Arm] Blood Pressure Mean [Right Arm] Blood Pressure Position [Right Arm] 02 Sat by Pulse Oximetry 100 97 98 Oxygen Delivery Method Room Air Room Air Room Air 07/22/24 09:30 07/22/24 10:00 07/22/24 11:10 Temperature 98.1 F Temperature Source Pulse Rate 70 61 61 Pulse Rate [Radial] Respiratory Rate 16 Blood Pressure 107/67 L 105/54 L 105/54 L Blood Pressure [Right Arm] Blood Pressure Mean [Right Arm] Blood Pressure Position [Right Arm] 02 Sat by Pulse Oximetry 98 97 Oxygen Delivery Method Room Air Room Air Lab Data Lab Results 07/22/24 06:38: Urine Color Yellow, Urine Appearance Slightly cloudy, Urine pH 6.0, Ur Specific [place] 1.025, Urine Protein 30, Urine Glucose (UA) Negative, Urine Ketones Large, Urine Blood 3+ A, Urine Nitrate Negative, Urine Bilirubin Negative, Urine Urobilinogen 0.2, Ur Leukocyte Esterase Negative, Urine RBC 10-20, Urine WBC None, Ur Squamous Epith Cells Occasional, Urine Bacteria Trace 07/22/24 06:48: WBC 8.2, RBC 4.65, Hgb 11.5 L, Hct 35.8 L, MCV 77.0 L, MCH 24.7 L, MCHC 32.1, RDW 17.2, Plt Count 286, MPV 10.3, Neut % (Auto) 70.3, Lymph % (Auto) 21.5, [place] % (Auto) 4.9, Eos % (Auto) 2.0, Baso % (Auto) 0.9, Neut # (Auto) 5.7, Lymph # (Auto) 1.8, [place] # (Auto) 0.4, Eos # (Auto) 0.2, Baso # (Auto) 0.1, Sodium 137, Potassium 4.0, Chloride 110 H, Carbon Dioxide 16 L, Anion Gap 15.0, BUN 15, Creatinine 0.60, Estimated Creat Clear 138, Estimated GFR 114, Est GFR ( Amer) 138, Glucose 88, Calcium 9.3, Magnesium 2.0, Total Bilirubin 0.2, AST 25, ALT 17, Alkaline Phosphatase 56, Total Protein 7.7, Albumin 4.8, Globulin 2.9, Albumin/Globulin Ratio 1.7, Lipase 73, Serum HCG, Qual Negative Orders (Tests/Meds): ED MEDICATIONS Generic Name Dose Route Start Last Admin Trade Name Freq PRN Reason Stop Dose Admin Hydromorphone HCl 0.5 mg 07/22/24 12:11 Hydromorphone 2mg/Ml Syringe IV 07/22/24 14:11 Q5MINP PRN Severe Pain (7-10) Lactated Ringer's 1,000 mls @ 100 mls/hr 07/22/24 12:15 Lactated Ringer's 1000 Ml Bag IV 07/22/24 20:00 .Q10H ANGIE Piperacillin Sod/Tazobactam 50 mls @ 100 mls/hr 07/22/24 17:00 Sod 3.375 gm/ Sodium Chloride IV 07/23/24 16:59 Q6H ANGIE Ketorolac Tromethamine 15 mg 07/22/24 12:11 07/22/24 13:09 Ketorolac 30mg/Ml Vial IV 07/27/24 12:10 15 mg Q6HP PRN Administration Mild to Moderate Pain (1-6) Meperidine HCl 25 mg 07/22/24 12:11 Meperidine 25mg/Ml 1ml Syringe IV 07/22/24 14:11 Q5MINP PRN Shivering Morphine Sulfate 2 mg 07/22/24 12:11 Morphine 2mg/Ml Syringe IV 08/21/24 12:10 Q2HP PRN Moderate to Severe Pain (4-10) Ondansetron HCl 4 mg 07/22/24 12:11 Ondansetron 4mg/2ml Vial IV 07/22/24 14:11 Q6HP PRN Nausea Ondansetron HCl 4 mg 07/22/24 12:11 Ondansetron 4mg/2ml Vial IV 08/21/24 12:10 Q6HP PRN Nausea Oxycodone/Acetaminophen 1 each 07/22/24 12:11 Oxycodone 5mg W/Apap 325mg Tablet PO 08/21/24 12:10 Q6HP PRN Moderate to Severe Pain (4-10) Promethazine HCl 6.25 mg 07/22/24 12:11 Promethazine Hcl 25mg/Ml 1ml Vial IV 07/22/24 14:11 [id number] PRN Nausea And Vomiting Sodium Chloride 10 ml 07/22/24 07:51 07/22/24 07:59 Sodium Chloride 0.9% 10ml Syr (Rad Only) IV 08/21/24 07:50 10 ml NEEDED PRN Administration Maintain IV Site Sodium Chloride 25 ml 07/22/24 12:11 Sodium Chloride 0.9% 25ml Bag IV 07/22/24 14:11 NEEDED PRN for Use with IV Promethazine Discontinued Medications Generic Name Dose Route Start Last Admin Trade Name Freq PRN Reason Stop Dose Admin Belladonna Alkaloids 60 ml 07/22/24 07:25 07/22/24 07:26 Belladonna Alkaloids 60 Ml Ml PO 07/22/24 07:26 60 ml ONCE ONE Administration Sodium Chloride 1,000 mls @ 999 mls/hr 07/22/24 06:45 07/22/24 06:52 Sod Chlor 0.9% 1000ml Bag IV 07/22/24 07:45 999 mls/hr .Q1H1M ANGIE Administration Piperacillin Sod/Tazobactam 50 mls @ 100 mls/hr 07/22/24 11:02 07/22/24 11:05 Sod 3.375 gm/ Sodium Chloride IV 07/22/24 11:31 100 mls/hr ONCE ONE Administration Lactated Ringer's 1,000 mls @ 999 mls/hr 07/22/24 11:04 07/22/24 11:05 Lactated Ringer's 1000 Ml Bag IV 07/22/24 12:04 999 mls/hr .Q1H1M ONE Administration Iopamidol 75 ml 07/22/24 07:51 07/22/24 07:59 Iopamidol-370 (76%);100ml Bottle IV 07/22/24 07:52 75 ml ONCE ONE Administration Ketorolac Tromethamine 30 mg 07/22/24 06:37 07/22/24 06:52 Ketorolac 30mg/Ml Vial IV 07/22/24 06:38 30 mg ONCE ONE Administration Morphine Sulfate 4 mg 07/22/24 06:37 07/22/24 07:00 Morphine 4mg/Ml Syringe IV 07/22/24 06:38 Not Given ONCE ONE Ondansetron HCl 4 mg 07/22/24 06:37 07/22/24 06:52 Ondansetron 4mg/2ml Vial IV 07/22/24 06:38 4 mg ONCE ONE Administration ORDERS Category Date Time Status CT abdomen pelvis w con Stat Cat Scan 07/22/24 06:38 Completed General Surgery Consult [Consult to General Surgery] [ Cons 07/22/24 10:09 Ordered CONS] Stat CBC w/Auto Diff [Complete Blood Count Auto Diff] Stat Lab 07/22/24 06:48 Completed CMP [Comprehensive Metabolic Panel] Stat Lab 07/22/24 06:48 Completed Complete Blood Count Auto Diff Routine Lab 07/23/24 06:00 Ordered HCG Qualitative, Serum Stat Lab 07/22/24 06:48 Completed Lipase Stat Lab 07/22/24 06:48 Completed Magnesium Stat Lab 07/22/24 06:48 Completed UA [Urinalysis and Microscopic] Stat Lab 07/22/24 06:38 Completed Urinalysis (cathed specimen) Routine Lab 07/22/24 11:26 Received Medical Decision Narrative: 34-year-old female with history of anemia presents for upper abdominal pain. History was obtained via interactive discussion with patient, family, chart. On arrival, patient is [afebrile, hemodynamically stable, satting appropriately, alert, oriented x4, GCS 15], moving all extremities spontaneously. Full physical exam performed and significant for upper abdominal tenderness Differential includes but is not limited to gastritis, gastroenteritis, cholecystitis, choledocholithiasis, constipation, bowel obstruction, UTI, kidney stone. Patient was given Toradol Zofran GI cocktail and 1 L fluid for symptomatic management and correction of underlying abnormalities. Workup initiated including CBC CMP mag lipase UA test CT abdomen pelvis IV contrast. Initial labs interpreted by me shows no significant leukocytosis, stable anemia. At this time care handed off to oncoming physician. DO Osman: On my assessment of the patient, she is lying in bed. She complains of continued soreness but she has had improvement in pain. No vomiting since assumption of care. Workup demonstrates mild anemia, which is stable. Chemistry is reassuring. She does have some blood in urine. I independently interpreted CT scan prior to radiology read and noted that the patient has very large gallstones. She also has a large appendicolith with concerns for acute appendicitis. Please see radiology read for final interpretation. Given appendicitis, I called and had an interactive discussion with general surgery who recommended IV Zosyn and take the patient to the OR for appendectomy. She was given IV Zosyn and a bolus of IV fluids, and she was taken to the OR in stable condition for acute appendicitis. Procedures <Kd Chavira MD - Last Filed: 07/22/24 07:27> Risk/Benefits of Procedure(s) Were Explained: Yes Critical Care <Kd Chavira MD - Last Filed: 07/22/24 07:27> Critical Care Time Critical Care Time: No
[2024-07-22 06:46] LABS: Microscopic, Urine URINE MICROSCOPIC (MICROSCOPIC)
[2024-07-22] MEDS: KETOROLAC 30MG/ML VIAL 30 MG IV (06:52)
[2024-07-22] MEDS: 0.9 % SODIUM CHLORIDE 1000ML 1,000 ML 999 ML IV (06:52)
[2024-07-22] MEDS: ONDANSETRON 4MG/2ML VIAL 4 MG IV (06:52)
[2024-07-22 07:05] LABS: Basophils # 0.1 K/mm3 (0-0.2); Basophils % 0.9 % (0.1-2.0); Eosinophils # 0.2 K/mm3 (0.0-0.4); Hematocrit 35.8 % (37.0-47.0); Hemoglobin 11.5 g/dL (12.2-16.2); Lymphocytes # 1.8 K/mm3 (0.7-4.5); Lymphocytes % 21.5 % (10-50); Mean Corpuscular HGB Conc 32.1 g/dL (31.8-35.4); Mean Corpuscular Hemoglobin 24.7 pg (27.0-31.2); Mean Platelet Volume 10.3 fl (7.4-10.4); Monocytes # 0.4 K/mm3 (0.1-1.0); Monocytes % 4.9 % (1.7-9.3); Neutrophils # 5.7 K/mm3 (1.8-7.8); Neutrophils % 70.3 % (37.0-80.0); Platelet Count 286 K/mm3 (142-424); Red Blood Count 4.65 M/mm3 (4.20-5.40); Red Cell Distribution Width 17.2 % (11.5-17.5); White Blood Count 8.2 K/mm3 (4.8-10.8)
[2024-07-22 07:10] LABS: Appearance,Urine Slightly Cloudy (Clear); Color,Urine Yellow (Yellow); Protein,Urine 30 (Negative); Specific Gravity, Urine 1.025 (1.005-1.030)
[2024-07-22 07:11] LABS: Glucose,Urine (UA) Negative (Negative); Ketones,Urine Large (Negative)
[2024-07-22 07:12] LABS: Alanine Aminotransferase 17 U/L (12-78); Albumin Level 4.8 g/dl (3.5-5.0); Albumin/Globulin Ratio 1.7 (1.1-1.8); Alkaline Phosphatase 56 U/L (38-126); Aspartate Amino Transferase 25 U/L (14-36); Bilirubin,Total 0.2 mg/dl (0.2-1.3); Blood Urea Nitrogen 15 mg/dl (7-17); Calcium 9.3 mg/dl (8.4-10.2); Carbon Dioxide 16 mmol/L (22.0-30.0); Chloride 110 mmol/L (98-107); Creatinine Clearance Estimated 138 mL/min (50-200); Estimated Glomerular Filt Rate 114 ml/min (>60); GFR (African American) 138 ML/MIN (>60); Globulin 2.9 g/dL (1.3-3.2); Glucose 88 mg/dl (74-100); Lipase 73 U/L (23-300); Sodium 137 mmol/L (136-145); Total Protein,Serum 7.7 g/dl (6.3-8.2)
[2024-07-22 07:12] LABS: Bilirubin,Urine Negative (Negative); Blood, Urine 3+ (Negative); Leukocyte Esterase,Urine Negative (Negative); Nitrate,Urine Negative (Negative); Urobilinogen,Urine 0.2 EU/dl (0.2)
[2024-07-22 07:13] LABS: Bacteria,Urine Trace /lpf; Squamous Epithelial Cell,Urine Occasional #/hpf (0-5)
[2024-07-22 07:23] LABS: HCG Qualitative, Serum Negative (Negative)
[2024-07-22] MEDS: BELLADONNA ALKALOIDS 60 ML ML PO (07:26)
--- NOTE | 2024-07-22 07:39 | PC.NURSE ---
pt is laying in bed and states she is still hurting in her back nothing helps the pain and she doesn't want certain meds due to it makes her mean and sick to her stomach. I spoke with regarding pt pain and medicine concerns at this time
[2024-07-22] MEDS: SODIUM CHLORIDE 0.9% 10ML SYR (RAD ONLY) 10 ML IV (07:59)
[2024-07-22] MEDS: IOPAMIDOL-370 (76%);100ML BOTTLE 75 ML IV (07:59)
--- NOTE | 2024-07-22 10:07 | PC.NURSE ---
HARLEY ALICEA on phone with surgeonhaleigh
--- NOTE | 2024-07-22 10:10 | PC.NURSE ---
surgery team called in
[2024-07-22] MEDS: PIPERACILLIN/TAZO 3.375 GM in 0.9 % SODIUM CHLORIDE 50 ML IV (11:05)
[2024-07-22] MEDS: LACTATED RINGERS 1000ML 1,000 ML 999 ML IV (11:05)
--- NOTE | 2024-07-22 11:12 | P.HP_ITS ---
HPI HPI HPI: 34-year-old lady presented to the emergency department with 24 hours of periumbilical and right-sided abdominal pain. She has had pain like this in the past that was located slightly higher and radiated to her back but is not lasted this long. She has subjective chills. Her abdomen feels rigid per her. She admits to nausea and no appetite and normal bowel movement yesterday. [facility] Disclaimer: The information contained in this section may have been updated after the patient was seen, as this information can be updated by other users. Medical History Tubal Gallstones Exposure to COVID-19 virus Sinusitis Nausea & vomiting Anemia Surgical History History of tubal ligation History of Family History Brother Alcoholism Substance abuse Family/Other Cancer Grandmother No problems noted. Mother Diabetes Heart attack Hypertension Father Hyperlipidemia Hypertension Grandfather Substance abuse Social History Smoking Status: Current every day smoker tobacco type: cigarettes packs per day: 1 alcohol intake: never substance use type: denies use current occupational status: employed Travel in the last 8 weeks: None household members: family housing: house Do you have any abdominal pain?: Yes Other Medical History Have you received the Flu Vaccine for this season: No Have you received the Pneumonia Vaccine: No Review of Systems Review of Systems Review of systems:: pertinent systems reviewed and negative unless documented below Review of systems (narrative): Abdominal pain Meds Home Medications and Allergies New Prescriptions to Start Prescriptions: Allergies Allergy/AdvReac Type Severity Reaction Status Date / Time No Known Allergies Allergy Verified 12/31/23 13:05 Exam Data for Last 24 hours Vital signs and Labs for Last 24 Hours: Temp Pulse Resp BP Pulse Ox O2 Del Method 98.1 F 61 16 105/54 L 97 Room Air 07/22/24 11:10 07/22/24 11:10 07/22/24 11:10 07/22/24 11:10 07/22/24 10:00 07/22/24 10:00 Laboratory Results - last 24 hr 07/22/24 06:38: Urine RBC 10-20, Urine WBC None, Ur Squamous Epith Cells Occasional, Urine Bacteria Trace 07/22/24 06:48: WBC 8.2, RBC 4.65, Hgb 11.5 L, Hct 35.8 L, MCV 77.0 L, MCH 24.7 L, MCHC 32.1, RDW 17.2, Plt Count 286, MPV 10.3, Neut % (Auto) 70.3, Lymph % (Auto) 21.5, [place] % (Auto) 4.9, Eos % (Auto) 2.0, Baso % (Auto) 0.9, Neut # (Auto) 5.7, Lymph # (Auto) 1.8, [place] # (Auto) 0.4, Eos # (Auto) 0.2, Baso # (Auto) 0.1, Sodium 137, Potassium 4.0, Chloride 110 H, Carbon Dioxide 16 L, Anion Gap 15.0, BUN 15, Creatinine 0.60, Estimated Creat Clear 138, Estimated GFR 114, Est GFR ( Amer) 138, Glucose 88, Calcium 9.3, Magnesium 2.0, Total Bilirubin 0.2, AST 25, ALT 17, Alkaline Phosphatase 56, Total Protein 7.7, Albumin 4.8, Globulin 2.9, Albumin/Globulin Ratio 1.7, Lipase 73, Serum HCG, Qual Negative I & O for Last 24 hours: Intake & Output 07/19/24 07/20/24 07/21/24 07/22/24 23:59 23:59 23:59 23:59 Weight 147 lb Constitutional Constitutional: no acute distress *Routine HEENT Exam Head: Present normocephalic Eye: Present EOMI ENT: Present mucous membranes moist *Routine Neck Exam Neck: Present supple *Routine Respiratory Exam Respiratory: Present CTA bilaterally; Absent accessory muscle use or decreased breath sounds *Routine Cardiovascular Exam Cardiovascular: Present RRR *Routine Abdominal Exam Abdominal: Present soft, tenderness, rebound and guarding; Absent distended *Routine Rectal Exam Rectal:: deferred *Routine Genitalia Exam Genitalia:: deferred Results Results Lab Results Last 24 Hours:: Laboratory Results - last 24 hr 07/22/24 06:38: Urine RBC 10-20, Urine WBC None, Ur Squamous Epith Cells Occasional, Urine Bacteria Trace 07/22/24 06:48: WBC 8.2, RBC 4.65, Hgb 11.5 L, Hct 35.8 L, MCV 77.0 L, MCH 24.7 L, MCHC 32.1, RDW 17.2, Plt Count 286, MPV 10.3, Neut % (Auto) 70.3, Lymph % (Auto) 21.5, [place] % (Auto) 4.9, Eos % (Auto) 2.0, Baso % (Auto) 0.9, Neut # (Auto) 5.7, Lymph # (Auto) 1.8, [place] # (Auto) 0.4, Eos # (Auto) 0.2, Baso # (Auto) 0.1, Sodium 137, Potassium 4.0, Chloride 110 H, Carbon Dioxide 16 L, Anion Gap 15.0, BUN 15, Creatinine 0.60, Estimated Creat Clear 138, Estimated GFR 114, Est GFR ( Amer) 138, Glucose 88, Calcium 9.3, Magnesium 2.0, Total Bilirubin 0.2, AST 25, ALT 17, Alkaline Phosphatase 56, Total Protein 7.7, Albumin 4.8, Globulin 2.9, Albumin/Globulin Ratio 1.7, Lipase 73, Serum HCG, Qual Negative Assessment and Plan *Assessment and plan (1) Acute appendicitis: Problem Comment: Acute appendicitis by CT scan and exam with history. I would recommend laparoscopic appendectomy. Risk of bleeding, infection, injury, and anesthetic were discussed and she agrees to proceed. Status: Acute Category: Medical Code(s): K35.80 - Unspecified acute appendicitis (2) Gallstones: Problem Comment: This is a chronic problem and likely represented by her recurrent right-sided abdominal pain. She likely has symptomatic cholelithiasis with large gallstone seen on CT scan. I would recommend laparoscopic cholecystectomy in the future once she resolves this acute surgical problem. Status: Acute Category: Medical Code(s): K80.20 - Calculus of gallbladder without cholecystitis without obstruction
[2024-07-22] MEDS: BUPIVACAINE 0.5% 30ML VIAL 150 MG (11:35)
--- NOTE | 2024-07-22 12:06 | EXP.COCOPNOT ---
Date of procedure: 07/22/24 Pre-op Diagnosis:: Acute appendicitis Post-op Diagnosis:: Nonruptured acute appendicitis Procedure performed:: Laparoscopic appendectomy Surgeon:: Soren Sutherland MD [employer]:: Alexander Bullock Anesthesia: MERARY Estimated blood loss (mL): 20 Operative findings:: Nonruptured acute appendicitis with acute serositis Operative note:: The patient was taken to the operating room and placed in the supine position. General anesthesia was instituted without complication. The abdomen was prepped and draped in usual sterile fashion and a presurgical pause was performed. I began the procedure with a infraumbilical incision. I dissected down to the fascia and grasped it between 2 Sparkle clamps. The fascia was divided and stay stitches of 0 Vicryl placed on either side. The abdomen was entered atraumatically and a Zuñiga trocar was placed. The abdomen is insufflated to 15 mmHg and 2 more ports were placed, 1 suprapubic and 1 in the left lower quadrant 5 mm apiece. I began a dissection of the right lower quadrant. She had a large and distended appendix with obvious signs of purulence and acute appendicitis. The appendix was grasped out of the tip and retracted anterior and lateral. I dissected out the base of the appendix with blunt dissection away from the mesoappendix. A white load was fired across the mesoappendix and a blue load was fired across the base of the appendix. The appendix was then placed into an Endo Catch bag. The abdomen was irrigated and suction. The 5 mm ports were removed as well as the Sonn in the Endo Catch bag. The fascia was closed with 0 Vicryl in [id number] fashion. Skin was reapproximated with 4-0 Monocryl in subcuticular fashion. Dermabond was applied. She tolerated the procedure well was transferred to the PACU in stable condition. Condition: stable Disposition: PACU Specimens:: Appendix Complications:: None
--- NOTE | 2024-07-22 12:10 | P.PNANES_ITS ---
[facility] Disclaimer: The information contained in this section may have been updated after the patient was seen, as this information can be updated by other users. Medical History Tubal Gallstones Exposure to COVID-19 virus Sinusitis Nausea & vomiting Anemia Surgical History History of tubal ligation History of Family History Brother Alcoholism Substance abuse Family/Other Cancer Grandmother No problems noted. Mother Diabetes Heart attack Hypertension Father Hyperlipidemia Hypertension Grandfather Substance abuse Social History Smoking Status: Current every day smoker tobacco type: cigarettes packs per day: 1 alcohol intake: never substance use type: denies use current occupational status: employed Travel in the last 8 weeks: None household members: family housing: house Do you have any abdominal pain?: Yes [facility] Anesthesia Checklist Patient Identification Patient Identification: Arm Band Structural Data Admitted From: Emergency Dept Planned Operative Procedure/s: Laparoscopic Appendectomy Consent for Planned Operative Procedure(s) Verified: Yes Verified Documents: Surgical Consent and History and Physical NPO Status Verified Time NPO: 00:00 Additional verifications Anesthesia Reactions: No Airway Assessment Mallampati Score:: Class II C-Spine Mobility Assessed: Yes TMJ Mobility Assessed: Yes Dentition: Good Dentition Neurological Assessment Level of Consciousness: Awake, Alert and Appropriate Anesthesia Plan Anesthesia Risk discussed: Yes Anesthesia Plan: Verified ASA Class: II (E) Anesthesia Type: General
--- NOTE | 2024-07-22 12:10 | EXP.ANES.I ---
[facility] Anesthesia Record Part I Anesthesia Record I Intake, IV Amount: 800 Hydration: Adequate Estimated blood loss (mL): 10 Urine output (mL): 200 Blood Products used (#): none Blood Pressure: 118/69 SaO2: 100 Pulse Rate: 78 Airway Patency: Patent Respiratory Rate: 16 Temperature: 98.3 F Patient is:: Drowsy and Stable Stable to PACU at:: 12:05
[2024-07-22] MEDS: KETOROLAC 30MG/ML VIAL 15 MG IV ×2 (13:09→22:32)
--- NOTE | 2024-07-22 13:17 | PC.NURSE ---
arrived to floor from surgery by bed at 12:44
[2024-07-22 13:27] LABS: Microscopic,Cath URINE MICROSCOPIC (MICROSCOPIC)
[2024-07-22 14:04] LABS: Appearance,Urine/Cath Clear (Clear); Color,Urine/Cath Yellow (Yellow)
[2024-07-22 14:05] LABS: Bilirubin,Cath Negative (Negative); Blood, Urine/Cath 1+ (Negative); Glucose,Urine/Cath (UA) Negative (Negative); Ketones,Urine/Cath 80 (Negative); Leukocyte Esterase,Cath Negative (Negative); Nitrate,Cath Negative (Negative); Protein,Urine/Cath Negative (Negative); Specific Gravity, Urine/Cath 1.015 (1.005-1.030); Urobilinogen,Cath 0.2 EU/dl (0.2)
[2024-07-22] MEDS: LACTATED RINGERS 1000ML 1,000 ML 100 ML IV (15:11)
--- NOTE | 2024-07-22 17:05 | EXP.ANES.II ---
[facility] Anesthesia Record Part II Anesthesia Record Part II Discharge Time: 12:35 Destination: Medical Surgical Department PACU nurse assessment reviewed?: Yes Patient Condition:: Good Anesthesia Complications:: None Swallowing reflex intact?: Yes Airway Patency: Patent Cyanosis?: No Blood Pressure: 106/63 SaO2: 100 Respiratory Rate: 16 Pulse Rate: 57 Temperature: 97.3 F Mental Status: Alert & Oriented Pain level:: 0 Nausea and/or vomitting:: None Intake, IV Amount: 0 Hydration: Adequate
[2024-07-22] MEDS: PIPERCILLIN/TAZO 3.375 GM in 0.9 % SODIUM CHLORIDE 50 ML IV ×2 (17:45→22:28)
--- NOTE | 2024-07-22 18:52 | PC.NURSE ---
PT IS RESTING IN BED WITH FAMILY AT BEDSIDE. ALERT AND ORIENTED X4. TOLERATING REGULAR DIET. AMBULATING IN THE ROOM. MEDICATED PER MAR WITH TORADOL FOR ABDOMINAL DISCOMFORT. LAP INCISIONS WITH DERMABOND NOTED TO ABDOMEN. POST OP VSS. WILL CONTINUE TO MONITOR.
[2024-07-23 04:00] VITALS: BP 99/55; PULSE 56; RESP 16; TEMP 36.8; O2SAT 98; BMI 25.6
[2024-07-23] MEDS: KETOROLAC 30MG/ML VIAL 15 MG IV (04:31)
[2024-07-23] MEDS: PIPERCILLIN/TAZO 3.375 GM in 0.9 % SODIUM CHLORIDE 50 ML IV (04:36)
--- NOTE | 2024-07-23 04:54 | PC.NURSE ---
Pt A&OX4 and has tolerated room air. Lung sounds clear and bowel sounds active. No drainage to lap incisions. Pt did complain of abdominal tenderness and was medicated per MAR. She has tolerated diet with no complaints of N/V. She has ambulated room independently. Family has remained at bedside. No complaints at this time, call light within reach.
[2024-07-23 07:17] VITALS: BP 93/53; PULSE 64; RESP 18; TEMP 36.5; O2SAT 97
[2024-07-23 07:39] LABS: Basophils # 0.1 K/mm3 (0-0.2); Basophils % 0.8 % (0.1-2.0); Eosinophils # 0.1 K/mm3 (0.0-0.4); Eosinophils % 2.1 % (0.1-12.0); Hematocrit 28.6 % (37.0-47.0); Lymphocytes # 2.2 K/mm3 (0.7-4.5); Lymphocytes % 34.4 % (10-50); Mean Corpuscular HGB Conc 31.5 g/dL (31.8-35.4); Mean Corpuscular Hemoglobin 25.4 pg (27.0-31.2); Mean Corpuscular Volume 80.6 fl (81-99); Mean Platelet Volume 10.9 fl (7.4-10.4); Monocytes # 0.4 K/mm3 (0.1-1.0); Monocytes % 6.3 % (1.7-9.3); Neutrophils # 3.6 K/mm3 (1.8-7.8); Neutrophils % 56.4 % (37.0-80.0); Platelet Count 189 K/mm3 (142-424); Red Blood Count 3.55 M/mm3 (4.20-5.40); Red Cell Distribution Width 17.6 % (11.5-17.5); White Blood Count 6.3 K/mm3 (4.8-10.8)
--- NOTE | 2024-07-23 10:34 | P.PN_ITS ---
Subjective Patient reports: no new complaints Narrative: Minimal pain. Feeling very well. Ready for home Exam Data for Last 24 hours Vital signs and Labs for Last 24 Hours: Temp Pulse Resp BP Pulse Ox O2 Del Method 97.7 F 64 18 93/53 L 97 Room Air 07/23/24 07:17 07/23/24 07:17 07/23/24 07:17 07/23/24 07:17 07/23/24 07:17 07/23/24 08:00 Laboratory Results - last 24 hr 07/22/24 06:38: Urine Color Yellow, Urine Appearance Slightly cloudy, Urine pH 6.0, Ur Specific [place] 1.025, Urine Protein 30, Urine Glucose (UA) Negative, Urine Ketones Large, Urine Blood 3+ A, Urine Nitrate Negative, Urine Bilirubin Negative, Urine Urobilinogen 0.2, Ur Leukocyte Esterase Negative 07/22/24 11:26: Urine Color Yellow, Urine Appearance Clear, Urine pH 5.0, Ur Specific [place] 1.015, Urine Protein Negative, Urine Glucose (UA) Negative, Urine Ketones 80, Urine Blood 1+, Urine Nitrate Negative, Urine Bilirubin Negative, Urine Urobilinogen 0.2, Ur Leukocyte Esterase Negative, Urine RBC None, Urine WBC None, Ur Squamous Epith Cells 3-5 07/23/24 06:15: WBC 6.3, RBC 3.55 L, Hgb 9.0 L D, Hct 28.6 L, MCV 80.6 L, MCH 25.4 L, MCHC 31.5 L, RDW 17.6 H, Plt Count 189 D, MPV 10.9 H, Neut % (Auto) 56.4, Lymph % (Auto) 34.4, [place] % (Auto) 6.3, Eos % (Auto) 2.1, Baso % (Auto) 0.8, Neut # (Auto) 3.6, Lymph # (Auto) 2.2, [place] # (Auto) 0.4, Eos # (Auto) 0.1, Baso # (Auto) 0.1 I & O for Last 24 hours: Intake & Output 07/20/24 07/21/24 07/22/24 07/23/24 23:59 23:59 23:59 23:59 Intake Total 1409 600 / 600 Output Total 0 / 0 0 / 0 Balance 1409 600 / 600 Weight 147 lb 4 oz 150 lb *Routine Abdominal Exam Abdominal: Present soft and tenderness (Minimal and appropriate); Absent distended Progress Note: A&P Assessment and plan (1) Acute appendicitis: Problem details: Doing well after laparoscopic appendectomy. I recommend no lifting for 4 weeks. I discussed her working restrictions. She has to follow-up in 2 weeks Status: Acute (2) Gallstones: Problem details: This is a chronic problem and likely represented by her recurrent right-sided abdominal pain. She likely has symptomatic cholelithiasis with large gallstone seen on CT scan. I would recommend laparoscopic cholecystectomy in the future once she resolves this acute surgical problem. Status: Acute
--- NOTE | 2024-07-23 10:36 | EXP.DC.SUM ---
General Admission date:: 07/22/24 Discharge date: 07/23/24 HPI HPI HPI: 34-year-old lady presented to the emergency department with 24 hours of periumbilical and right-sided abdominal pain. She has had pain like this in the past that was located slightly higher and radiated to her back but is not lasted this long. She has subjective chills. Her abdomen feels rigid per her. She admits to nausea and no appetite and normal bowel movement yesterday. Hospital Course Hospital Course Hospital Course: Latesha was admitted to the hospital with acute appendicitis diagnosed on history, physical, and CT scan. She underwent an uneventful laparoscopic appendectomy. She tolerated a regular diet and her pain was controlled without narcotics. She was ready for discharge. Exam Data for Last 24 hours Vital signs and Labs for Last 24 Hours: Temp Pulse Resp BP Pulse Ox O2 Del Method 97.7 F 64 18 93/53 L 97 Room Air 07/23/24 07:17 07/23/24 07:17 07/23/24 07:17 07/23/24 07:17 07/23/24 07:17 07/23/24 08:00 Laboratory Results - last 24 hr 07/22/24 06:38: Urine Color Yellow, Urine Appearance Slightly cloudy, Urine pH 6.0, Ur Specific [place] 1.025, Urine Protein 30, Urine Glucose (UA) Negative, Urine Ketones Large, Urine Blood 3+ A, Urine Nitrate Negative, Urine Bilirubin Negative, Urine Urobilinogen 0.2, Ur Leukocyte Esterase Negative 07/22/24 11:26: Urine Color Yellow, Urine Appearance Clear, Urine pH 5.0, Ur Specific [place] 1.015, Urine Protein Negative, Urine Glucose (UA) Negative, Urine Ketones 80, Urine Blood 1+, Urine Nitrate Negative, Urine Bilirubin Negative, Urine Urobilinogen 0.2, Ur Leukocyte Esterase Negative, Urine RBC None, Urine WBC None, Ur Squamous Epith Cells 3-5 07/23/24 06:15: WBC 6.3, RBC 3.55 L, Hgb 9.0 L D, Hct 28.6 L, MCV 80.6 L, MCH 25.4 L, MCHC 31.5 L, RDW 17.6 H, Plt Count 189 D, MPV 10.9 H, Neut % (Auto) 56.4, Lymph % (Auto) 34.4, [place] % (Auto) 6.3, Eos % (Auto) 2.1, Baso % (Auto) 0.8, Neut # (Auto) 3.6, Lymph # (Auto) 2.2, [place] # (Auto) 0.4, Eos # (Auto) 0.1, Baso # (Auto) 0.1 I & O for Last 24 hours: Intake & Output 07/20/24 07/21/24 07/22/24 07/23/24 23:59 23:59 23:59 23:59 Intake Total 1409 600 / 600 Output Total 0 / 0 0 / 0 Balance 1409 600 / 600 Weight 147 lb 4 oz 150 lb *Routine Abdominal Exam Abdominal: Present soft and tenderness (Minimal and appropriate); Absent distended Results Data Completed and Pending Labs on day of discharge: Labs from last 24 hours 07/23/24 07/22/24 07/22/24 06:15 11:26 06:38 WBC 6.3 RBC 3.55 L Hgb 9.0 L D Hct 28.6 L MCV 80.6 L MCH 25.4 L MCHC 31.5 L RDW 17.6 H Plt Count 189 D MPV 10.9 H Neut % (Auto) 56.4 Lymph % (Auto) 34.4 [place] % (Auto) 6.3 Eos % (Auto) 2.1 Baso % (Auto) 0.8 Neut # (Auto) 3.6 Lymph # (Auto) 2.2 [place] # (Auto) 0.4 Eos # (Auto) 0.1 Baso # (Auto) 0.1 Urine Color Yellow Yellow Urine Appearance Clear Slightly cloudy Urine pH 5.0 6.0 Ur Specific [place] 1.015 1.025 Urine Protein Negative 30 Urine Glucose (UA) Negative Negative Urine Ketones 80 Large Urine Blood 1+ 3+ A Urine Nitrate Negative Negative Urine Bilirubin Negative Negative Urine Urobilinogen 0.2 0.2 Ur Leukocyte Esterase Negative Negative Urine RBC None Urine WBC None Ur Squamous Epith Cells 3-5 DS: Diagnosis Discharge Diagnosis (1) Acute appendicitis: Status: Acute Code(s): K35.80 - Unspecified acute appendicitis Problem details: Doing well after laparoscopic appendectomy. I recommend no lifting for 4 weeks. I discussed her working restrictions. She has to follow-up in 2 weeks (2) Gallstones: Status: Acute Code(s): K80.20 - Calculus of gallbladder without cholecystitis without obstruction Problem details: This is a chronic problem and likely represented by her recurrent right-sided abdominal pain. She likely has symptomatic cholelithiasis with large gallstone seen on CT scan. I would recommend laparoscopic cholecystectomy in the future once she resolves this acute surgical problem. Meds Home Medications and Allergies Home Medications ?Medication ?Instructions ?Recorded ?Confirmed ?Type No Known Home Medications 07/22/24 07/22/24 History New Prescriptions to Start Prescriptions: Allergies Allergy/AdvReac Type Severity Reaction Status Date / Time No Known Allergies Allergy Verified 12/31/23 13:05 Discharge Plan Disposition Patient Disposition: Home, Self-Care Condition: Fair Follow up Plan Follow up with: Melody Adams APRN [Primary Care Provider] - See instructions Prescriptions/Medication Reconciliation: No Action No Known Home Medications Problem Reconciliation Problems Reviewed?: Yes Patient Discharge Instructions ACTIVITY: No heavy lifting DIET: advance to your usual diet Additional Instructions: You may shower this evening 07/23/2024. Leave the glue in place until seen in follow-up in 2 weeks. Avoid strenuous activity and heavy lifting. Patient Instructions: DI for Appendicitis -- Adult, Surgical Site Infection Print Language: Arabic Providers Primary Care Provider: Melody Adams Admit Provider: Soren Sutherland Attending Provider: Soren Sutherland
--- NOTE | 2024-07-25 11:25 | SW/DCPLANNER ---
Spoke with patient on the phone. Patient stated that she is doing well. Patient stated that she is aware of her upcoming appointment. Patient stated that she is sore but been moving around more today. Patient stated that she has no concerns or questions at this time. Toya Crews
== END 2024-07-23 11:35 | disposition home or self-care (01) ==
LOC: ER 07:56 → SDC 11:09 → 2ND 12:36
PROVIDERS: Emergency Medicine; Admitting Provider Student in an Organized Health Care Education/Training Program; Emergency Provider Emergency Medicine; PCP Family Medicine; Visit Provider Student in an Organized Health Care Education/Training Program
PROC: (CPT 44950; principal; 2024-07-22 11:15)
DX: K35.80 Unspecified acute appendicitis (principal); F17.210 Nicotine dependence, cigarettes, uncomplicated; K80.20 Calculus of gallbladder without cholecystitis without obstruction
CPT/HCPCS: 44970; 36415; 74177; 80053; 81001; 83690; 83735; 84703; 85025; 99285; J3490; C9144; G0378; J1100; J1885; J2250; J2405; J2543; J3010; J7030; J7120; Q9967